=== PATIENT | female | born 2000 | race Caucasian/White ===

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

== ENCOUNTER 2024-09-24 00:03 | Inpatient (IN) | payer BC, MEDICAID ==
[2024-09-24] MEDS ORDERED: Terbutaline 1 MG/ML SDV SUBCUT PRN (00:14)
[2024-09-24] MEDS ORDERED: Carboprost Tromethamine 250 MCG/1 mL Vial IM PRN (00:16)
[2024-09-24] MEDS ORDERED: Water For Irrigation,Sterile 1,000 ML Container IRR PRN (00:16)
[2024-09-24] MEDS ORDERED: Sodium Chloride 0.9% 10 ML Syringe FLUSH PRN (00:16)
[2024-09-24] MEDS ORDERED: Ondansetron 4 MG/2 ML SDV IVPUSH PRN (00:16)
[2024-09-24] MEDS ORDERED: Sodium Chloride 0.9% 2.5 ML Syringe FLUSH PRN (00:16)
[2024-09-24] MEDS ORDERED: Oxytocin/0.9 % Sodium Chloride 30 UNIT/500 ML BAG IV SCH (00:30)
[2024-09-24] MEDS: Misoprostol 25 MCG (1/4 of 100 MCG) Tab VAG PRN ×2 (01:10→05:35)
[2024-09-24 01:22] LABS: MEAN PLATELET VOLUME 12.5 fL (9.4-12.3); NRBC ABSOLUTE 0.00 K/uL (0.00-0.02); NRBC PERCENT 0.0 /100WBC (0.0-0.2); PLATELET COUNT,PLT 242 K/uL (150-400); RED BLOOD CELL COUNT 4.34 M/uL (4.10-5.30); WHITE BLOOD CELL COUNT,WBC 14.83 K/uL (3.9-11.3)
[2024-09-24] MEDS: Lactated Ringers 1,000 ML IV SCH (04:32)
[2024-09-24] MEDS: Oxytocin/0.9 % Sodium Chloride 30 UNIT/500 ML BAG IV SCH (13:46)
[2024-09-24] MEDS: Butorphanol 1 MG/ML SDV IM PRN (17:11)
[2024-09-24] MEDS: Butorphanol 1 MG/ML SDV IVPUSH PRN (20:59)
[2024-09-25 01:48] LABS: PH,UMBILICAL ARTERIAL 7.32 (7.18-7.38); PH,UMBILICAL VENOUS 7.33 (7.25-7.45)
[2024-09-25] MEDS: Witch Hazel Medicated Pads 40/Jar TOP PRN (03:35)
[2024-09-25] MEDS: Benzocaine/Menthol 20%-0.5% Spray 78 GM Cannister TOP PRN (03:36)
[2024-09-25] MEDS: Lanolin 100% Cream 7 GM Tube TOP PRN (03:36)
== END 2024-09-26 11:30 | disposition home or self-care (01) | DRG 560 ==
LOC: MW.OB 00:03 → OBSVTOIN 09-25 01:19 → MW.OB 09-25 03:52
PROVIDERS: ADMIT Obstetrics & Gynecology; ATTEND Obstetrics & Gynecology
PROC: 10E0XZZ Delivery of Products of Conception, External Approach (ICD-10-PCS; principal; 2024-09-25)
PROC: 0KQM0ZZ Repair Perineum Muscle, Open Approach (ICD-10-PCS; 2024-09-25)
PROC: 3E0DXGC Introduction of Other Therapeutic Substance into Mouth and Pharynx, External Approach (ICD-10-PCS; 2024-09-25)
PROC: 10907ZC Drainage of Amniotic Fluid, Therapeutic from Products of Conception, Via Natural or Artificial Opening (ICD-10-PCS; 2024-09-25)
PROC: 3E033VJ Introduction of Other Hormone into Peripheral Vein, Percutaneous Approach (ICD-10-PCS; 2024-09-25)
PROC: 30233S1 Transfusion of Nonautologous Globulin into Peripheral Vein, Percutaneous Approach (ICD-10-PCS; 2024-09-25)
DX: O48.0 Post-term pregnancy (principal); Z3A.40 40 weeks gestation of pregnancy; Z37.0 Single live birth; D62 Acute posthemorrhagic anemia; O70.1 Second degree perineal laceration during delivery; O41.03X0 Oligohydramnios, third trimester, not applicable or unspecified; O99.214 Obesity complicating childbirth
CPT/HCPCS: 36415; 59025; 59409; 82803; 85014; 85018; 85027; 85460; 86592; 86850; 86900; 86901; A9270-GY; J0595; J2003; J2590; J2791; J7120